=== PATIENT | male | born 1995 | race American Indian/Alaskan Native ===

== ENCOUNTER 2018-06-19 01:29 | Emergency (ER) | payer SELFPAY ==
[2018-06-19 01:50] VITALS: RESP 16
[2018-06-19] MEDS ORDERED: Sodium Chloride 0.9% 1,000 ML IV ONE (03:24)
[2018-06-19] MEDS ORDERED: Sodium Chloride 0.9% 1,000 ML ONE (04:21)
[2018-06-19 04:30] LABS: ALB/GLOB RATIO 1.7 (1.0-2.1); ALBUMIN 5.4 g/dL (3.5-5.0); ALT/SGPT 15 U/L (21-72); AST/SGOT 21 U/L (17-59); BLOOD UREA NITROGEN 18 mg/dL (9-20); CALCIUM 9.4 mg/dl (8.6-10.4); GFR NON-AFRICAN AMERICAN > 60; LIPASE 39 U/L (23-300)
[2018-06-19 04:41] LABS: BASO % 0.1 % (0.0-2.0); EOS # 0.1 K/uL (0.0-0.7); EOS % 1.9 % (0.0-4.0); HEMOGLOBIN 16.3 g/dL (12.0-18.0); LYMPH # 1.5 K/uL (1.0-4.3); LYMPH % 31.2 % (20.0-40.0); MEAN CELL VOLUME 86.4 fL (80.0-94.0); MEAN CORPUSCULAR HEMOGLOBIN 28.7 pg (27.0-31.0); MEAN CORPUSCULAR HGB CONC 33.2 g/dL (33.0-37.0); MEAN PLATELET VOLUME 7.7 fL (7.2-11.7); MONO # 1.1 K/uL (0.0-0.8); NEUT # 2.1 K/uL (1.8-7.0); PLATELET COUNT 229 K/uL (130-400); RBC 5.68 Mil/uL (4.40-5.90); RED CELL DISTRIBUTION WIDTH 13.6 % (11.5-14.5); WHITE BLOOD COUNT 4.8 K/uL (4.8-10.8)
[2018-06-19 04:42] LABS: MONO % 22.8 % (0.0-10.0)
--- NOTE | 2018-06-19 05:16 | C.PDOC ---
History Of Present Illness 22 year old male presents to the ED for evaluation of nausea, vomiting and diarrhea which began two days ago. Patient denies abdominal pain, fever, chills, chest pain, shortness of breath, recent travel, sick contacts or any urinary symptoms at this time. Time Seen by Provider: 06/19/18 02:41 Chief Complaint (Nursing): GI Problem History Per: Patient History/Exam Limitations: no limitations Onset/Duration Of Symptoms: Days (2) Current Symptoms Are (Timing): Still Present Quality Of Discomfort: "Pain" Associated Symptoms: Nausea, Vomiting, Diarrhea. denies: Fever, Chills, Urinary Symptoms Additional History Per: Patient Past Medical History Reviewed: Historical Data, Nursing Documentation, Vital Signs Vital Signs: Last Vital Signs Temp 98.1 F 06/19/18 01:48 Pulse 69 06/19/18 01:48 Resp 16 06/19/18 01:48 BP 131/83 06/19/18 01:48 Pulse Ox 98 06/19/18 01:48 - Medical History PMH: No Chronic Diseases Surgical History: No Surg Hx Family History: States: Unknown Family Hx - Social History Hx Alcohol Use: No Hx Substance Use: No - Immunization History Hx Tetanus Toxoid Vaccination: Yes Hx Influenza Vaccination: Yes Hx Pneumococcal Vaccination: No Review Of Systems Constitutional: Negative for: Fever, Chills Cardiovascular: Negative for: Chest Pain Respiratory: Negative for: Shortness of Breath Gastrointestinal: Positive for: Nausea, Vomiting, Diarrhea. Negative for: Abdominal Pain Genitourinary: Negative for: Dysuria, Frequency, Hematuria Physical Exam - Physical Exam Appears: Non-toxic, No Acute Distress Skin: Normal Color, Warm, Dry Head: Atraumatic, Normacephalic Eye(s): bilateral: Normal Inspection Oral Mucosa: Moist Neck: Supple Chest: Symmetrical, No Deformity, No Tenderness Cardiovascular: Rhythm Regular, No Murmur Respiratory: Normal Breath Sounds, No Rales, No Rhonchi, No Wheezing Gastrointestinal/Abdominal: Soft, No Tenderness, No Guarding, No Rebound Extremity: Normal ROM, Capillary Refill (less than 2 seconds ) Neurological/Psych: Normal Speech, Normal Cognition ED Course And Treatment - Laboratory Results Result Diagrams: 06/19/18 04:17 06/19/18 04:17 Lab Results: Total Bilirubin 0.7 mg/dL (0.2-1.3) 06/19/18 04:17 AST 21 U/L (17-59) 06/19/18 04:17 ALT 15 U/L (21-72) L 06/19/18 04:17 Alkaline Phosphatase 72 U/L (38-126) 06/19/18 04:17 Total Protein 8.5 g/dL (6.3-8.3) H 06/19/18 04:17 Albumin 5.4 g/dL (3.5-5.0) H 06/19/18 04:17 Globulin 3.2 gm/dL (2.2-3.9) 06/19/18 04:17 Albumin/Globulin Ratio 1.7 (1.0-2.1) 06/19/18 04:17 Lipase 39 U/L (23-300) 06/19/18 04:17 O2 Sat by Pulse Oximetry: 98 - Other Rad Abdomen XR X-Ray: Viewed By Me, Read By Radiologist Interpretation: Abdomen. Indication: Possible obstruction abd pain vomiting and nausea (Hx). Findings: Normal visualized lung bases. There is an unremarkable bowel gas pattern. There is no demonstrated free abdominal air. Normal visualized liver. Normal visualized spleen. Normal visualized kidneys. The soft tissue structures of the pelvis are unremarkable. Normal visualized osseous structures. Impression: No radiographic evidence of an acute pathology. Medical Decision Making Medical Decision Making: Progress: Bloodwork and Abdomen XR ordered and reviewed. Zofran IVP and IV Fluids given. Disposition Counseled Patient/Family Regarding: Studies Performed, Diagnosis, Need For Followup - Disposition Referrals: [facility] [Outside] [facility] [Outside] Disposition: HOME/ ROUTINE Disposition Time: 06:17 Condition: IMPROVED Additional Instructions: PEARL HEADLEY, thank you for letting us take care of you today. Your provider was Eunice Trinidad MD and you were treated for DIARRHEA. The emergency medical care you received today was directed at your acute symptoms. If you were prescribed a [place] medication, please fill it and take as directed. It may take several days for your symptoms to resolve. Return to the Emergency Department if your symptoms worsen, do not improve, or if you have any other problems. Please contact your doctor or call one of the physicians/clinics you have been referred to that are listed on the Patient Visit Information form that is included in your discharge packet. Bring any paperwork you were given at discharge with you along with any medications you are taking to your follow up visit. Our treatment cannot replace ongoing medical care by a primary care leland bobby outside of the emergency department. Thank you for allowing the [facility] team to be part of your care today. If you had an X-Ray or CT scan: A Radiologist will review the ED reading if any change in treatment is needed we will contact you. If you had a blood, urine, or wound culture: It will take several days for the results, if any change in treatment is needed we will contact you. If you had an STI test: It will take 48 hours for the results. Please call after 1 week if you have not heard back. Instructions: Nausea and Vomiting, Adult (DC), [place] Diet Forms: Clinked (Yi), General Discharge Instructions - POA Present On Arrival: None - Clinical Impression Clinical Impression: Nausea vomiting and diarrhea
[2018-06-19 07:18] VITALS: BP 130/72; PULSE 64; TEMP 98.5; O2SAT 100
[2018-06-19 08:20] LABS: BANDS 9 % (0-2); EOSINOPHIL 1 % (0-4); LYMPHOCYTE 34 % (20-40); MONOCYTE 20 % (0-10); NEUTROPHIL 36 % (50-75); PLATELET ESTIMATE NORMAL (NORMAL); TOTAL CELLS COUNTED 100
--- NOTE | 2018-06-19 08:49 | RAD ---
Date of service: 06/19/2018 HISTORY: abd pain COMPARISON: None available. FINDINGS: BOWEL: Normal. No obstruction. No free air. Stomach is distended with a large amount food debris. BONES: Normal. OTHER FINDINGS: None. IMPRESSION: No acute mechanical bowel obstruction.
== END 2018-06-19 07:20 | disposition home or self-care (01) ==
LOC: C.ER 01:29
DX: R11.2 Nausea with vomiting, unspecified (principal); R19.7 Diarrhea, unspecified
CPT/HCPCS: 74018; 80053; 83690; 85025; 96361; 96374; 99284; J2405; J7030